=== PATIENT | male | born 1950 | race Two or more races ===

== ENCOUNTER 2024-08-23 23:20 | Inpatient (IN) | payer OTHER, MEDICARE, SELFPAY ==
--- NOTE | 2024-08-23 23:28 | EKG_ITS ---
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
[2024-08-23 23:30] VITALS: BP 198/84; PULSE 64; RESP 19; TEMP 36.7; O2SAT 97
[2024-08-23 23:31] VITALS: BMI 30.9
--- NOTE | 2024-08-23 23:48 | XR_ITS ---
Examination: PA chest single view Technique: Upright PA chest single view Exam date and time: August 24, 2024 12 0 6:00 AM Indications: Onset focal neurologic deficit today CVA Findings: Normal heart size No aspiration pneumonia The osseous structures are intact Impression: Negative for aspiration pneumonia
--- NOTE | 2024-08-23 23:48 | XR_ITS ---
Examination: CT brain head without contrast. 2-D sagittal coronal reconstructions Date and time of exam:August 24, 2024 0013 hrs. Comparison July 02, 2006 Indications: Stroke alert, onset focal neurologic deficit, onset onset left facial droop and altered mental status today CTDI: vol (mGy):53 DLP: (mGycm):1009 Technique: Multiple CT axial sections of the brain have been obtained, 5 mm slice thickness. Contrast has not been administered. 2-D sagittal, coronal reconstructions have been obtained Low dose protocols were performed. One or more of the following dose reduction techniques were used; automated exposure control, adjustment of the mA and/or KV according to patient size, use of iterative reconstruction technique. Findings: Acute nonhemorrhagic infarct left basal ganglia with mild mass effect upon the left frontal horn and left lateral ventricle Ventricles are not enlarged No intra-axial or extra-axial hematoma Fourth ventricle midline Cranial vault intact Impression: Acute nonhemorrhagic infarct left basal ganglia Recommend brain MRI MRA without contrast follow-up
--- NOTE | 2024-08-23 23:49 | EDRME_ITS ---
Rapid Medical Screening Exam [facility] Arrival date/time: 08/23/24 23:20 73M with history of alcohol use presents to ED with 2 days of possible slurred speech and R facial droop. Patient denies any symptoms, but son is saying patient is stubborn and had to be convinced to come to the ED. Chief Complaint: General Adult/Misc Complain Vital signs: Vital Signs Temperature 98.1 F 08/23/24 23:30 Pulse Rate 64 08/23/24 23:30 Respiratory Rate 19 08/23/24 23:30 Blood Pressure 198/84 H 08/23/24 23:30 Pulse Oximetry (%) 97 08/23/24 23:30 Oxygen Delivery Method Room Air 08/23/24 23:30
[2024-08-24] VITALS (25 sets, daily range): BP systolic 131–192; BP diastolic 70–96; PULSE 50–63; RESP 5–24; TEMP 36.1–37; O2SAT 97–100
[2024-08-24 01:29] LABS: Basophils % (Auto) 0 % (0-2.5); Eosinophils # (Auto) 0.3 Thou/mm3 (0.0-0.5); Eosinophils % (Auto) 4 % (0-10); Hematocrit 42.9 % (41.0-53.0); Hemoglobin 14.6 g/dL (13.5-16.0); Immature Granulocytes % (Auto) 0 % (0-0); Immature Granulocytes Auto 0.01 Thou/mm3 (0.00-0.00); Lymphocytes % (Auto) 27 % (10-50); Mean Corpuscular Hemoglobin 29.4 pg (25.0-35.0); Mean Corpuscular Volume 86 fL (80-100); Monocytes # (Auto) 0.9 Thou/mm3 (0.0-0.8); Monocytes % (Auto) 12 % (0-12); Neutrophils # (Auto) 4.1 Thou/mm3 (1.8-7.7); Neutrophils % (Auto) 56 % (37-80); Nucleated Red Blood Cell % 0 /100 WBC (0); Platelet Count 191 Thou/mm3 (140-440); RDW Standard Deviation 42.5 fL (35.1-43.9); Red Blood Count 4.97 Miln/mm3 (4.50-5.90); White Blood Count 7.3 Thou/mm3 (3.8-10.6)
[2024-08-24 01:37] LABS: INR 1.1 (0.9-1.3); Partial Thromboplastin Time 27.8 Seconds (22.0-36.0); Prothrombin Time 11.6 Seconds (9.0-12.2)
[2024-08-24 01:49] LABS: B-Type Natriuretic Peptide < 20 pg/mL (0-100)
--- NOTE | 2024-08-24 01:49 | PRELIM_ITS ---
CT scan of the head without intravenous contrast (axial sections with sagittal and coronal reformats) August 24, 2024 at 0013 hours Clinical history: Possible cerebrovascular accident, slurred speech and right facial droop Comparison: No prior study is available for comparison. Findings:There is an ill-defined hypodensity in the left basal ganglia, suspicious for acute/subacute infarct (axial image 21/42). There is no evidence of acute intracranial hemorrhage, mass effect or midline shift. There a re periventricular white matter hypodensities, compatible with chronic small vessel ischemia. There i s [id number]-[id number]-[id number] volume loss. Basal ganglia calcifications are present bilaterally. There is athero matous calcification of the intracranial arteries. The calvarium is unremarkable. There is mild mucos al thickening in bilateral ethmoid and left maxillary sinuses. The mastoid air cells and the other vi sualized paranasal sinuses are clear.Impression:1. Ill-defined hypodensity in the left basal ganglia, suspicious for acute/subacute infarct. 2. No evidence of acute intracranial hemorrhage, mass effect or midline shift.3. Other findings as described above. Suggest clinical correlation and further asses s with MRI if clinically indicated. Discussion Details: Results Discussed With : Dr. Cook at 01:4 4 AM 08/24/2024 Report Electronically Signed By: Florencio Rai 08/24/2024 1:48:53 AM [EST]
--- NOTE | 2024-08-24 01:52 | XR_ITS ---
Examination: MRI brain without intravenous contrast. Date and time of exam: August 24, 2024 at 0730 hrs. Indications: Stroke alert this morning, onset focal neurologic deficit, left facial droop altered mental status, acute nonhemorrhagic infarct left basal ganglia on CT brain scan August 24, 2024 0013 hrs. Technique: Multiple axial and sagittal images of the brain obtained. Siemens high-resolution 1.5 Karen short bore scanners utilized. Sagittal sections, T1-weighted, TR 500, TE 14, are performed. Axial sections proton-density and T2-weighted have been obtained. Inversion recovery axial images, TR 9, 260, TE 111, TI 2500. Diffusion weighted images, axial sections, TR 4800, TE 128, B value 1000 Axial sections, ADC map, TR 4800, TE 128 Findings: Enlargement of the sella turcica is not present. The optic chiasm and infundibular are not remarkable. Prepontine and interpeduncular cisterns are not enlarged. There is no localized enlargement of the medulla or corey. Fourth ventricle and cerebellar tonsils appear normal in position. No subacute area of hemorrhage density is seen. Mass in the cerebellopontine angle region is not evident. Globes symmetrical. Orbital musculature including medial lateral rectus muscles do not exhibit abnormality. Diffusion-weighted images demonstrate 39 mm focus restricted diffusion left basal ganglia with mild mass effect upon the left frontal horn. Increased white matter signal evident in the left basal ganglia Mass effect upon the ventricular system is not identified. Impression: 39 mm acute left basal ganglia infarct, nonhemorrhagic
--- NOTE | 2024-08-24 01:52 | ECHO_ITS ---
Transthoracic Echo Report Ht (in): 65 Wt (lb): 186 Exam Location: ER Status: Emergency Clerk Of Superior Court: Suma Lynn Indications: Procedure Performed: BP: 154 / 84 HR: 55 Rhythm: Bradycardia Technical Quality: Technically difficult study Contrast: Agitated Saline Total Dose (mL): MEASUREMENTS (Male / Female) Normal Values 2D ECHO LVOT Diameter 1.9 cm LA Volume Index 31.4 cm?/m? 16 - 28 cm?/m? Ascending Aorta Diameter 3.0 cm M-MODE Aortic Root Diameter MM 3.0 cm LA Systolic Diameter MM 3.6 cm LA Ao Ratio MM 1.2 AV Cusp Separation MM 2.3 cm DOPPLER AV Peak Velocity 181.0 cm/s AV Peak Gradient 13.1 mmHg AV Mean Gradient 5.0 mmHg AV Velocity Time Integral 32.1 cm LVOT Peak Velocity 117.0 cm/s LVOT Peak Gradient 5.5 mmHg LVOT Velocity Time Integral 27.0 cm LVOT Cardiac Index 2110.3 cm?/min?m? AV Area Cont Eq vti 2.4 cm? AV Area Cont Eq pk 1.8 cm? MV Peak Velocity 93.3 cm/s MV Peak Gradient 3.5 mmHg MV Mean Velocity 49.5 cm/s MV Mean Gradient 1.0 mmHg MV Area PHT 3.3 cm? Mitral E Point Velocity 72.3 cm/s Mitral A Point Velocity 91.2 cm/s Mitral E to A Ratio 0.8 LV E' Lateral Velocity 9.8 cm/s Mitral E to LV E' Lateral Ratio 7.4 LV E' Septal Velocity 8.2 cm/s Mitral E to LV E' Septal Ratio 8.9 FINDINGS Left Ventricle Normal left ventricular size, wall thickness, systolic function with no obvious regional wall motion abnormalities. The ejection fraction is visually estimated at 55-60%. Right Ventricle The right ventricle is normal in size and systolic function. Left Atrium The left atrium is normal by two-dimensional, color flow and Doppler imaging with no structural abnormalities, no thrombus formation present. Right Atrium The right atrium is normal by two-dimensional imaging, color flow and Doppler imaging with no struct ural abnormalities, no thrombus formation present. Atrial Septum The interatrial septum appears normal with no evidence of a shunt. Aorta The aorta is normal by two-dimensional, color flow and Doppler interrogation. Mitral Valve The mitral valve is normal by two-dimensional, color flow and Doppler interrogation. There is trace mitral valve regurgitation. Aortic Valve The aortic valve is trileaflet and normal by two-dimensional, color flow and Doppler interrogation. There is no significant aortic valve regurgitation. Tricuspid Valve The tricuspid valve is normal by two-dimensional, color flow and Doppler interrogation. There is tra ce tricuspid valve regurgitation. Pulmonic Valve The pulmonic valve is normal by two-dimensional, color flow and Doppler interrogation. There is no significant pulmonic valve regurgitation. Vessels The pulmonary artery appears normal. The inferior vena cava pulmonary and hepatic veins appear jesus l. Pericardium The pericardium is normal by two-dimensional imaging. There is no significant pericardial effusion. CONCLUSIONS Indication: CVA Negative bubble study. TTE is subopitmal to rule out PFO or ASD. Consider TARSHA if high clinical suspi cion. Normal LV size and function. Stage I diastolic dysfunction. Estimated EF 55-60% Normal RV size and function. Trace MR, TR. Nelson Nolasco (Electronically Signed) Final Date: 25 August 2024 08:21
[2024-08-24] MEDS: Aspirin 325 MG TABLET PO (02:05)
--- NOTE | 2024-08-24 02:06 | PD.HHHP ---
Documentation for date of: 08/24/24 HPI - Hospitalist History of Present Illness History of Present Illness: Right facial droop History of present illness: This is a 73-year-old male with a significant history of chronic daily alcohol consumption who presented to the Emergency Department for evaluation of possible stroke symptoms. Per his , the symptoms began abruptly yesterday morning around 10:00 AM, when she first noticed a right-sided facial droop and slurred speech. Initially, the patient denied any problems and was reluctant to seek medical attention. However, his family observed continued subtle changes in his behavior and appearance, prompting increasing concern. They ultimately contacted emergency services after the symptoms persisted. Upon presentation, the patient denied any symptoms and appeared nonchalant, though his confirmed the presence of a persistent right facial droop and mild speech difficulty. He denied dizziness, vision changes, or extremity weakness. His last reported alcohol consumption was just prior to the onset of symptoms. There were no associated headache, loss of consciousness, or seizures. The patient has no known history of prior strokes, medical conditions, or medication use. He has no history of tobacco use or prior surgeries. Emergency Department Course: On arrival, vital signs were as follows: BP 151/71, HR 62, RR 16, TEMP 98.1. The patient was alert, oriented, and in no acute distress. Examination revealed a right facial droop, but motor strength in all extremities was intact, and no dysarthria was noted. Laboratory results included WBC 7.3, hemoglobin 14.6, platelets 191, sodium 136, potassium 3.6, and glucose 158. AST was 45. Imaging studies showed an ill-defined hypodensity in the left basal ganglia, suspicious for an acute or subacute infarct, with no evidence of intracranial hemorrhage, mass effect, or midline shift. Electrocardiogram demonstrated sinus bradycardia. The patient was admitted for CVA workup. Review of Systems Review of Systems Narrative Review of Systems: A 14 point review of systems was assessed and negative except for that per HPI Past Medical History Past Medical History CARDIAC: Negative Congestive Heart Failure RESPIRATORY: Negative Chronic Obstructive Pulmonary Disease (COPD) GENITOURINARY: Negative Renal Disease ENDOCRINE: Negative Diabetes Mellitus Type 1 or Diabetes Mellitus Type 2 Social History SMOKING STATUS: Former smoker Meds Home Medications and Allergies Home Medications ?Medication ?Instructions ?Recorded ?Confirmed ?Type No Known Home Medications 08/24/24 08/24/24 History Allergies Allergy/AdvReac Type Severity Reaction Status Date / Time No Known Allergies Allergy Verified 08/23/24 23:25 Exam Vital Signs Temp Pulse Resp BP Pulse Ox O2 Del Method 98.1 F 62 16 151/71 H 99 Room Air 08/23/24 23:30 08/24/24 01:48 08/24/24 01:48 08/24/24 01:48 08/24/24 01:48 08/24/24 01:48 Narrative Constitutional: Male in no apparent distress. Eyes: Extraocular movements intact. No ptosis. Neck: Supple, trachea midline. No thyromegaly. Lungs: Clear breath sounds bilaterally. No wheezes or rhonchi. Cardiovascular: S1, S2. Regular rate and rhythm. Abdomen: Soft, non-tender. No hepatosplenomegaly. Extremities: No cyanosis, clubbing, or edema. Neurological: Alert and oriented ? 3. Right facial droop noted. Strength intact in all four extremities. No dysarthria or coordination deficits. Psychiatric: Non-focal and cooperative. Skin: Warm and dry without acute lesions. Results - Hospitalist Labs Diagrams: 08/24/24 01:10 Labs: Short CBC 08/24/24 Range/Units 01:10 WBC 7.3 (3.8-10.6) Thou/mm3 Hgb 14.6 (13.5-16.0) g/dL Hct 42.9 (41.0-53.0) % Plt Count 191 (140-440) Thou/mm3 Assessment & Plan -Hospitalist Patient Synopsis #CVA, left basal ganglia - No TPA (out of window) - Admit to telemetry - Aspirin 81 mg daily - Lipitor 40 mg daily - Neurology consult - Neuro check q 4 hourly - MRI head - Carotid duplex - 2D ECHO - Lipid panel, HbA1C - Keep systolic BP <220 and diastolic BP <120 mmHg - Maintain LDL less than 75 - DVT prophylaxis - Fall, aspiration and seizure precautions - PT Evaluation - Swallow evaluation Quality Measures Quality Measures VTE prophylaxis Advance care planning discussed with:: patient
[2024-08-24 02:08] LABS: Alanine Aminotransferase 41 U/L (10-49); Albumin, Serum 4.8 gm/dL (3.4-4.8); Albumin/Globulin Ratio 1.7 (1.2-2.2); Alcohol, Blood Medical < 3.0 mg/dL (0-10.0); Alkaline Phosphatase 44 U/L (46-116); Anion Gap 6 (7-16); Aspartate Amino Transferase 45 U/L (0-34); BUN/Creatinine Ratio 13 Ratio (12-20); Bilirubin,Total 0.4 mg/dL (0.3-1.2); Blood Urea Nitrogen 14 mg/dL (9-23); Calcium 9.3 mg/dL (8.3-10.6); Calcium (Corrected) 9.3 mg/dL (8.5-10.1); Carbon Dioxide 24.7 mMol/L (20.0-31.0); Chloride 105 mMol/L (98-107); Creatinine (Component) 1.1 mg/dL (0.6-1.3); Globulin 2.9 gm/dL (2.3-3.5); Glucose 158 mg/dL (74-106); Magnesium 2.3 mg/dL (1.6-2.6); Osmolality,Calculated 275 (275-295); Potassium 3.6 mMol/L (3.4-5.1); Sodium 136 mMol/L (136-145); Total Protein 7.7 gm/dL (5.7-8.2); Troponin I < 0.002 ng/mL (0.0-0.045); eGFR > 60 See Note
--- NOTE | 2024-08-24 02:28 | XR_ITS ---
Examination: CTA carotids with intravenous contrast CTA brain, head with intravenous contrast. 2-D sagittal, coronal reconstructions. 3-D reconstructions. Exam date and time: August 24, 2024 0337 hrs. Indications: Stroke alert this morning, onset focal neurologic deficit, onset left facial droop and altered mental status CTDI: vol (mGy) 11.1 DLP: (mGycm) 432 Technique: Multiple CTA axial brain, head carotid images post intravenous contrast injection 75 cc, [id number]. 2-D sagittal, coronal reconstructions. 3-D reconstructions, 3-D post processing including vascular maximum intensity projection images. Low dose protocols were performed. One or more of the following dose reduction techniques were used; automated exposure control, adjustment of the mA and/or KV according to patient size, use of iterative reconstruction technique. Findings: No significant common carotid carotid bifurcation or internal carotid artery stenoses Codominant vertebral arteries with no critical stenoses No cerebral large vessel arterial occlusions thrombus dissection or cerebral aneurysm Impression: No significant neck arterial stenoses No cerebral large vessel arterial occlusions or thrombus
--- NOTE | 2024-08-24 02:31 | PD.EDNEURO ---
Neuro Symptoms Deficit-RME/HPI General Chief Complaint: Neuro Symptoms/Deficit Stated Complaint: Hes having strokes Source: patient and family Arrival date/time: 08/23/24 23:20 Mode of arrival: ambulatory Limitations: no limitations RME / HPI RME / HPI Narrative: 08/23/24 23:20 73M with history of alcohol use presents to ED with 2 days of possible slurred speech and R facial droop. Patient denies any symptoms, but son is saying patient is stubborn and had to be convinced to come to the ED. DR WEBB MAIN ED EVALUATION: 73-year-old male with no significant past medical history who presents to the emergency department for concerns of neurological deficits ongoing for the past 2 days. Patient reports possible slurred speech and right facial droop. No other symptoms or medical complaints are mentioned. Related Data Previous Rx's ?Medication ?Instructions ?Recorded amlodipine 5 mg tablet 5 mg PO QDAY 30 days #30 tabs 08/25/24 aspirin 81 mg tablet,delayed 81 mg PO QDAY 30 days #30 tabs 08/25/24 release (Enteric Coated Aspirin) atorvastatin 40 mg tablet 40 mg PO HS 30 days #30 tabs 08/25/24 Allergies Allergy/AdvReac Type Severity Reaction Status Date / Time No Known Allergies Allergy Verified 08/23/24 23:25 Review of Systems Review of Systems Systems Reviewed: All systems reviewed, normal except as documented Past Medical History Past Medical History CARDIAC: Negative Congestive Heart Failure RESPIRATORY: Negative Respiratory Disorders or Chronic Obstructive Pulmonary Disease (COPD) GENITOURINARY: Negative Renal Disease ENDOCRINE: Negative Diabetes Mellitus Type 1 or Diabetes Mellitus Type 2 Social History SMOKING STATUS: Former smoker ED Exam Narrative Physical exam: GENERAL APPEARANCE: alert and oriented x 4, well-developed, well-nourished, no acute distress VITALS: All vitals were reviewed and the pulse ox is 99% on room air, which is normal according to my interpretation. HEENT: Normocephalic, atraumatic; pupils equal, round, reactive to light; EOMI; mucous membranes pink, moist; oropharynx clear NECK: Supple LUNGS: CTABL; no wheezes, no rales, no rhonchi HEART: Regular rate, regular rhythm; normal S1, S2; no murmurs ABDOMEN: non distended; normal BS; soft, no tenderness, no guarding, no rebound; no masses, no organomegaly, no hernia BACK: no CVA tenderness EXTREMITIES: atraumatic; no edema NEUROLOGIC: awake; alert and oriented x4; cranial nerves II-XII grossly intact; no focal sensory or motor deficits PSYCHIATRIC: appropriate mood and affect SKIN: warm, dry, normal color; no rashes General Limitations: Present no limitations Course Course Course Narrative: Evaluated by teleneurology. Neurologist recommends aspirin 81 mg, Plavix 75 mg, vascular study, and MRI Quality Measures none Orders Category Date Time Status Blood glucose [Bedside Blood Glucose] NOW Care 08/23/24 23:29 Completed EKG (ED ONLY) *Do not use* NOW Care 08/23/24 23:28 Completed MRI Screening NOW Care 08/24/24 01:52 Completed Neuro Check Q4H Care 08/24/24 01:52 Completed Swallow Evaluation NEEDED Care 08/24/24 01:53 Completed CA echo doppler complete Routine Exams 08/24/24 01:[address] head/brain wo con Stat Exams 08/23/24 23:48 Completed EKG (ED Only) Stat Exams 08/23/24 23:28 Draft MR head/brain wo con Routine Exams 08/24/24 01:52 Completed XR chest 1V portable Stat Exams 08/23/24 23:48 Completed A1C [Glycohemoglobin w (eAG)] AM DRAW Lab 08/24/24 05:56 Completed Alcohol, Blood Medical Stat Lab 08/23/24 23:48 Completed B-Type Natriuretic Peptide Stat Lab 08/23/24 23:48 Completed CBC Stat Lab 08/23/24 23:48 Completed Comprehensive Metabolic Panel Stat Lab 08/23/24 23:48 Completed Drug Screen,Urine Stat Lab 08/24/24 08:15 Completed Magnesium Stat Lab 08/23/24 23:48 Completed Partial Thromboplastin Time Stat Lab 08/23/24 23:48 Completed Prothrombin Time with INR Stat Lab 08/23/24 23:48 Completed Troponin I Stat Lab 08/23/24 23:48 Completed Urinalysis Stat Lab 08/24/24 08:15 Completed Aspirin Med 08/24/24 01:53 Discontinued 325 mg PO X1 ONE Aspirin [Ecotrin] Med 08/24/24 09:00 Discontinued 81 mg PO QDAY Atorvastatin Calcium [Lipitor] Med 08/24/24 21:00 Discontinued 40 mg PO HS Vital Signs Vital signs: Vital Signs Temperature 98.1 F 08/23/24 23:30 Pulse Rate 64 08/23/24 23:30 Respiratory Rate 19 08/23/24 23:30 Blood Pressure 198/84 H 08/23/24 23:30 Pulse Oximetry (%) 97 08/23/24 23:30 Oxygen Delivery Method Room Air 08/23/24 23:30 Neuro Symptoms / Deficit MDM Narrative MDM Narrative:: Scribe Attestation: I, Catracho Corrales, am scribing for and in the presence of Dr. Webb. Provider Notation: Although this document has been carefully reviewed, there may still be some phonetic and other typographical errors. These errors are purely grammatical due to imperfections in the software program and should not be construed in any way to compromise the substance of the patient's medical care during this visit. Patient data External records reviewed:: [facility] previous records Clinical information provided by:: patient and family Social determinants that could affect healthcare access:: none Patient has the following chronic illnesses:: None How is presenting disease/condition affected by chronic disease/condition?: no chronic disease Evaluation data The following diagnostics were reviewed and interpreted by me:: lab results, radiology exam(s) and EKG tracing(s) Lab and/or radiology exams considered but not ordered:: None Interpretation Summary: I personally reviewed the radiology data and agree with the radiologist's interpretation. CT scan of the head without intravenous contrast (axial sections with sagittal and coronal reformats) August 24, 2024 at 0013 hours Clinical history: Possible cerebrovascular accident, slurred speech and right facial droop Comparison: No prior study is available for comparison. Findings: There is an ill-defined hypodensity in the left basal ganglia, suspicious for acute/subacute infarct (axial image 21/42). There is no evidence of acute intracranial hemorrhage, mass effect or midline shift. There are periventricular white matter hypodensities, compatible with chronic small vessel ischemia. There is appo-zb-[id number] volume loss. Basal ganglia calcifications are present bilaterally. There is atheromatous calcification of the intracranial arteries. The calvarium is unremarkable. There is mild mucosal thickening in bilateral ethmoid and left maxillary sinuses. The mastoid air cells and the other visualized paranasal sinuses are clear. Impression: 1. Ill-defined hypodensity in the left basal ganglia, suspicious for acute/subacute infarct. 2. No evidence of acute intracranial hemorrhage, mass effect or midline shift. 3. Other findings as described above. Suggest clinical correlation and further assess with MRI if clinically indicated. Discussion Details: Results Discussed With : Dr. Webb at 01:44 AM 08/24/2024 Report Electronically Signed By: Florencio Rai 08/24/2024 1:48:53 AM [EST] Medications / Prescriptions Medications or Prescriptions considered but not ordered:: None Medication administrations:: Medication Administration History Discontinued Medications Acetaminophen (Acetaminophen 325 Mg Tablet) 650 mg PO Q6H PRN PRN Reason: Fever >101.5 Stop: 09/23/24 02:04 Aspirin (Aspirin Ec 81 Mg Tabec) 81 mg PO QDAY [facility] Stop: 09/23/24 08:59 Last Admin: 08/25/24 08:31 Dose: 81 mg Documented By: Admin: 08/24/24 08:30 Dose: 81 mg Documented By: ARCHANA Aspirin (Aspirin 325 Mg Tablet) 325 mg PO X1 ONE Stop: 08/24/24 01:54 Last Admin: 08/24/24 02:05 Dose: 325 mg Documented By: CB Atorvastatin Calcium (Atorvastatin Calcium 20 Mg Tablet) 40 mg PO HS [facility] Stop: 09/23/24 20:59 Last Admin: 08/24/24 20:58 Dose: 40 mg Documented By: WB Clopidogrel Bisulfate (Clopidogrel Bisulfate 75 Mg Tablet) 75 mg PO QDAY REESE Stop: 09/23/24 08:59 Last Admin: 08/25/24 08:31 Dose: 75 mg Documented By: Admin: 08/24/24 08:30 Dose: 75 mg Documented By: FC Dextrose (Dextrose 50%-Water Inj 50 Ml Syringe) 25 ml IV Q15MIN PRN PRN Reason: BG 50-70 responsive npo pt Stop: 09/23/24 02:45 Dextrose (Dextrose 50%-Water Inj 50 Ml Syringe) 50 ml IV Q15MIN PRN PRN Reason: BG <50 OR BG <70 & pt unresponsive Stop: 09/23/24 02:45 Folic Acid (Folic Acid 1 Mg Tablet) 1 mg PO BID REESE Stop: 08/29/24 08:59 Last Admin: 08/25/24 08:31 Dose: 1 mg Documented By: Admin: 08/24/24 20:58 Dose: 1 mg Documented By: Admin: 08/24/24 08:30 Dose: 1 mg Documented By: ARCHANA Glucagon (Glucagon Inj 1 Mg Vial) 1 mg IM Q15MIN PRN PRN Reason: BG <70, and no IV access Heparin Sodium (Porcine) (Heparin Sod Inj 5000 Unit/Ml Vial) 5,000 unit SC Q8HR REESE Stop: 09/07/24 05:59 Last Admin: 08/25/24 13:56 Dose: 5,000 unit Documented By: MIRLANDE Co-signed By: YESIKA Admin: 08/25/24 05:43 Dose: 5,000 unit Documented By: WB Co-signed By: MADAI Admin: 08/24/24 21:01 Dose: 5,000 unit Documented By: PADMA Co-signed By: PAULA Admin: 08/24/24 14:48 Dose: 5,000 unit Documented By: MIRLANDE Co-signed By: MAKAYLA Admin: 08/24/24 05:50 Dose: 5,000 unit Documented By: PRISCILA Co-signed By: ERWIN Hydralazine HCl (Hydralazine Inj 20 Mg/Ml Vial) 10 mg IV Q6H PRN PRN Reason: SBP >160 Stop: 09/23/24 21:29 Last Admin: 08/24/24 21:33 Dose: 10 mg Documented By: PADMA Sodium Chloride (Ns) 1,000 mls @ 75 mls/hr IV .[id number] ONE Stop: 08/24/24 15:34 Last Admin: 08/24/24 04:03 Dose: 75 mls/hr Documented By: PRISCILA Insulin Human Regular (Insulin Hum Regular 1 Unit/0.01 Ml (Per Unit)) 0 unit SC ACHS [facility]; Protocol Stop: 09/23/24 07:29 Last Admin: 08/25/24 07:47 Dose: Not Given Documented By: MIRLANDE Non-Admin Reason: Per Protocol Admin: 08/24/24 21:02 Dose: Not Given Documented By: PADMA Non-Admin Reason: Per Protocol Admin: 08/24/24 18:01 Dose: Not Given Documented By: MIRLANDE Non-Admin Reason: Per Protocol Admin: 08/24/24 12:25 Dose: Not Given Documented By: ARCHANA Non-Admin Reason: Per Protocol Admin: 08/24/24 08:26 Dose: Not Given Documented By: ARCHANA Non-Admin Reason: Patient Refused Lorazepam (Lorazepam 0.5 Mg Tablet) 0.5 mg PO Q4HR PRN PRN Reason: CIWA Score 2-6 Stop: 08/29/24 02:21 Lorazepam (Lorazepam 0.5 Mg Tablet) 1 mg PO Q4HR PRN PRN Reason: CIWA SCORE 7-11 Stop: 08/29/24 02:21 Lorazepam (Lorazepam 0.5 Mg Tablet) 2 mg PO Q4HR PRN PRN Reason: CIWA SCORE 12-15 Stop: 08/29/24 02:21 Lorazepam (Lorazepam 2 Mg/Ml Vial) 1 mg IV X1 PRN PRN Reason: Breakthrough Agitation Thiamine HCl (Thiamine 100 Mg Tablet) 100 mg PO BID REESE Stop: 08/29/24 08:59 Last Admin: 08/25/24 08:31 Dose: 100 mg Documented By: Admin: 08/24/24 20:58 Dose: 100 mg Documented By: Admin: 08/24/24 08:30 Dose: 100 mg Documented By: ARCHANA As above Consultations Consultation(s) initiated? (list below): Yes Consultation #1 (Physician, Specialty, Details): Hospitalist team made aware of the patient?s HPI, PMHx, lab and/or radiology results. Treatment plan was discussed. Will admit for further evaluation and management. Accepts patient for admission. Diagnosis Neuro Differential Diagnosis: convulsions, subarachnoid hemorrhage, peripheral neuropathy, cerebrovascular accident and transient cerebral ischemia Most likely diagnosis given after review of the tests above:: CVA Admission Indicated Admission indicated?: indicated Admission Request Was there a request for admission?: Yes Admission Attestation Admission request attestation: Discussed case with [] from Hospitalist service regarding admission. Discussed patients ED course, exam findings, labs, and radiology results. The Hospitalist [agrees,declines] to accept the patient for admission. Disposition Plan Disposition Plan: Admit Critical Care Time Critical Care Time Critical Care Time: Yes Total Critical Care Time (min.): 35 Attestation: The high probability of sudden, clinically significant deterioration in the patient?s condition required the highest level of my preparedness to intervene urgently. The services I provided to this patient were to treat and/or prevent clinically significant deterioration. Services included the following: chart data review, reviewing nursing notes and/or old charts, documentation time, business solutions consultant collaboration regarding findings and treatment options, medication orders and management, direct patient care, vital sign assessments and ordering, interpreting and reviewing diagnostic studies and lab tests. Aggregate critical care time includes only time during which I was engaged in work directly related to the patient?s care, as described above, whether at bedside or elsewhere in the Emergency Department. It did not include time spent performing other reported procedures or the services of residents, students, nurses or physician assistants. Discharge Plan Plan Patient Disposition: Admit Acute Care w/in Hospital Patient condition on transfer: Stable Problem List Clinical Impression: Acute CVA (cerebrovascular accident)
--- NOTE | 2024-08-24 02:54 | PC.NURSE ---
STROKE ALERT DELAYED DUE TO UNCERTAINTY OF LAST KNOWN WELL TIME
--- NOTE | 2024-08-24 02:57 | PC.NURSE ---
stroke consult Case # [id number]
--- NOTE | 2024-08-24 03:22 | ESCONSULT_ITS ---
Tele Neuro Consultation Consultation Date 08/24/24 Most Recent Vital Signs Last Vital Signs Temp 98.1 F 08/23/24 23:30 Pulse 62 08/24/24 01:48 Resp 16 08/24/24 01:48 BP 151/71 H 08/24/24 01:48 Pulse Ox 99 08/24/24 01:48 O2 Del Method Room Air 08/24/24 01:48 Laboratory-Coagulation Panel PT 11.6 Seconds (9.0-12.2) 08/24/24 01:10 INR 1.1 (0.9-1.3) 08/24/24 01:10 APTT 27.8 Seconds (22.0-36.0) 08/24/24 01:10 Consultation Narrative [facility] Patient Name:???Yared Camacho Date of :???1950 Identification Number:??? Date of Service:???08/24/2024 02:57:38 Diagnosis:?I63.50 - Cerebrovascular accident (CVA) due to stenosis of cerebral artery (HCC) Impression: ?Left subcortical ischemic stroke ?This patient has experienced a subacute ischemic stroke localized to the left subcortical region, manifesting clinically as right-sided lower facial weakness and mild dysarthria. Given the uncertainty regarding the precise timing of symptom onset and the lack of significant disabling deficits, thrombolysis was not indicated. He has been appropriately started on dual antiplatelet therapy (aspirin 81 mg and Plavix 75 mg) for three weeks to reduce recurrent stroke risk. ? ?I recommend continuing dual antiplatelet therapy for three weeks, followed by monotherapy with aspirin 81 mg daily. I plan to normalize blood pressure cautiously over time, as this stroke is subacute. ? ?Await CTA head and neck and MRI brain Our recommendations are outlined below. Recommendations: ? Stroke/Telemetry Floor ? Neuro Checks ? Bedside Swallow Eval ? DVT Prophylaxis ? IV Fluids, Normal Saline ? Head of Bed 30 Degrees ? Euglycemia and Avoid Hyperthermia (PRN Acetaminophen) Metrics: Last Known Well: 08/23/2024 03:15:34 Dispatch Time: 08/24/2024 02:57:38 Arrival Time: 08/23/2024 23:23:00 Initial Response Time: 08/24/2024 03:02:26Symptoms: right facial droop. Initial patient interaction: 08/24/2024 03:10:25 NIHSS Assessment Completed: 08/24/2024 03:18:59Patient is not a candidate for Thrombolytic. Thrombolytic Medical Decision: 08/24/2024 03:19:01Patient was not deemed candidate for Thrombolytic because of following reasons: LKW outside 4.5 hr window. . I personally Reviewed the CT Head and it Showed left subcortical ischemic stroke Primary Provider Notified of Diagnostic Impression and Management Plan on: 08/24/2024 03:19:34 History of Present Illness:Patient is a 73 year old Male. Patient was brought by private transportation with symptoms of right facial droop. 73-year-old right-handed gentleman who presented to the emergency department following concerning neurological symptoms that began around 9 PM according to the patient and family members. The exact onset of symptoms is uncertain; the patient?s reported noticing slurred speech and a right-sided facial droop around 10 PM the night before presentation (Tuesday), while other family members suggested these symptoms had been ongoing for an entire day prior. Despite initial improvement in symptoms, his family eventually convinced him to seek medical evaluation. Past Medical History: ?There is no history of Hypertension ?There is no history of Hyperlipidemia ?There is no history of Coronary Artery Disease ?There is no history of Stroke ?There is no history of Seizures ?There is no history of Dementia/MCI Medications: No Anticoagulant use? No Antiplatelet use Reviewed EMR for current medications Allergies:? NKDA Social History: Patient Is: Single Smoking: No Alcohol Use: Yes Drug Use: No Family History: There is no family history of premature cerebrovascular disease pertinent to this consultation ROS : 14 Points Review of Systems was performed and was negative except mentioned in HPI. Past Surgical History: There Is No Surgical History Contributory To Today?s Visit Examination: BP(151/71),?Pulse(62), 1A: Level of Consciousness - Alert; keenly responsive?+ 0 1B: Ask Month and Age - Both Questions Right?+ 0 1C: Blink Eyes & Squeeze Hands - Performs Both Tasks?+ 0 2: Test Horizontal Extraocular Movements - Normal?+ 0 3: Test Visual Bell - No Visual Loss?+ 0 4: Test Facial Palsy (Use Grimace if Obtunded) - Partial paralysis (lower face)? + 2 5A: Test Left Arm Motor Drift - No Drift for 10 Seconds?+ 0 5B: Test Right Arm Motor Drift - No Drift for 10 Seconds?+ 0 6A: Test Left Leg Motor Drift - No Drift for 5 Seconds?+ 0 6B: Test Right Leg Motor Drift - No Drift for 5 Seconds?+ 0 7: Test Limb Ataxia (FNF/Heel-Leija) - No Ataxia?+ 0 8: Test Sensation - Normal; No sensory loss?+ 0 9: Test Language/Aphasia - Normal; No aphasia?+ 0 10: Test Dysarthria - Mild-Moderate Dysarthria: Slurring but can be understood?+ 1 11: Test Extinction/Inattention - No abnormality?+ 0 NIHSS Score:?3 Pre-Morbid Modified [place] Scale:0 Points = No symptoms at all Spoke with :?Dr. Parada This consult was conducted in real time using interactive audio and video technology. Patient was informed of the technology being used for this visit and agreed to proceed. Patient located in hospital and provider located at home/office setting. Patient is being evaluated for possible acute neurologic impairment and high probability of imminent or life-threatening deterioration. I spent total of 45 minutes providing care to this patient, including time for face to face visit via telemedicine, review of medical records, imaging studies and discussion of findings with providers, the patient and/or family. Dr Devi Cook [facility] For Inpatient follow-up with [facility] physician please call [facility] at . As we are not an outpatient service for any post hospital discharge needs please contact the hospital for assistance. If you have any questions for the [facility] physicians or need to reconsult for clinical or diagnostic changes please contact us via [facility] at .
[2024-08-24] MEDS: SODIUM CHLORIDE 0.9% 1000 ML 1,000 ML 75 ML IV (04:03)
--- NOTE | 2024-08-24 05:29 | PRELIM_ITS ---
CT angiogram of the head and neck with intravenous contrast (axial sections with sagittal and coronal reformats) August 24, 2024 at 0337 hours Clinical History: CVA.Comparison: Compared with the prior study dated August 24, 2024 12:13 AM Findings:Head: The internal carotid, middle and anterior cere bral arteries are patent bilaterally. The intracranial vertebral arteries are patent. The vertebrobas ilar junction, basilar and posterior cerebral arteries are patent. diminutive caliber of the basilar artery. origin of the BELT BRANDER with a hypoplastic P1 segment bilaterally. No evidence of large vesse l occlusion, critical stenosis or aneurysm.Neck: The aortic arch to the extent visualized as well as the origins of the right brachiocephalic, left common carotid, and left subclavian arteries are paten t. The common carotid arteries, carotid bulbs, and internal and external carotid arteries are patent. The origins of the vertebral arteries are unremarkable. Vertebral arteries are codominant. No eviden ce of vascular occlusion, critical stenosis, dissection or aneurysm. The soft tissues of the neck are unremarkable. The osseous structures are unremarkable.Impression: Head: No evidence of large vessel occlusion, critical stenosis or aneurysm.Neck: No evidence of vascular occlusion, critical stenosis, dissection or aneurysm. Report Electronically Signed By: Trace Santiago 08/24/2024 5:29:32 AM [EST]
[2024-08-24] MEDS: HEPARIN SOD INJ 5000 UNIT/ML VIAL SC ×3 (05:50→21:01)
[2024-08-24 06:50] LABS: Basophils % (Auto) 0 % (0-2.5); Eosinophils # (Auto) 0.3 Thou/mm3 (0.0-0.5); Eosinophils % (Auto) 5 % (0-10); Hemoglobin 13.6 g/dL (13.5-16.0); Immature Granulocytes % (Auto) 0 % (0-0); Immature Granulocytes Auto 0.02 Thou/mm3 (0.00-0.00); Lymphocytes # (Auto) 1.9 Thou/mm3 (1.0-4.8); Lymphocytes % (Auto) 29 % (10-50); Mean Corpuscular Hemoglobin 29.1 pg (25.0-35.0); Mean Corpuscular Volume 86 fL (80-100); Monocytes # (Auto) 0.9 Thou/mm3 (0.0-0.8); Monocytes % (Auto) 13 % (0-12); Neutrophils # (Auto) 3.5 Thou/mm3 (1.8-7.7); Neutrophils % (Auto) 53 % (37-80); Nucleated Red Blood Cell % 0 /100 WBC (0); Platelet Count 201 Thou/mm3 (140-440); RDW Standard Deviation 41.9 fL (35.1-43.9); Red Blood Count 4.68 Miln/mm3 (4.50-5.90); White Blood Count 6.7 Thou/mm3 (3.8-10.6)
[2024-08-24 07:02] LABS: Anion Gap 7 (7-16); BUN/Creatinine Ratio 14 Ratio (12-20); Blood Urea Nitrogen 13 mg/dL (9-23); Carbon Dioxide 24.5 mMol/L (20.0-31.0); Cardiac Risk Estimate 3.5 RATIO (4.0-6.7); Chloride 106 mMol/L (98-107); Cholesterol 190 mg/dL (132-200); Creatinine (Component) 0.9 mg/dL (0.6-1.3); Estimated Creatinine Clearance 70.9 mL/min (>60); Glucose 105 mg/dL (74-106); HDL Cholesterol 54 mg/dL (40-60); LDL Cholesterol,Calculated 110 mg/dL (0-130); Osmolality,Calculated 273 (275-295); Potassium 3.4 mMol/L (3.4-5.1); Sodium 137 mMol/L (136-145); Triglycerides 131 mg/dL (30-150); eGFR > 60 See Note
--- NOTE | 2024-08-24 07:25 | PC.NURSE ---
Patient taken to MRI
[2024-08-24 07:32] LABS: Glucose Estimated Average 123 mg/dL (80-131); Hemoglobin A1C 5.9 % Hgb (4.8-6.0)
--- NOTE | 2024-08-24 08:18 | PC.CC ---
Patient is a 73 year-old male who presented to the hospital for CVA. Alannah VILLANUEVA made [id number] contact with patient. ASW introduced self, role, and reason for visit. Patient appeared alert and oriented to self, location, and situation. At bedside was patent's , Michelle Camacho who patient provided consent in the room during initial assessment. Patient was pleasant and engaged in initial assessment. Patient confirmed information on demographics and reports to living at home with his . Prior to being admitted to the hospital the patient was able to ambulate independently and complete own ADLs. The patient does not use any DME. The patient does not have a primary care provider. Patient next of kin is his , Michelle Camacho. Upon discharge the patient plans to return back home. [employer] to follow-up with any discharge needs.
[2024-08-24 08:26] LABS: Collection Type, Urine Clean Catch
[2024-08-24] MEDS: CLOPIDOGREL BISULFATE 75 MG TABLET PO (08:30)
[2024-08-24] MEDS: THIAMINE 100 MG TABLET PO ×2 (08:30→20:58)
[2024-08-24] MEDS: FOLIC ACID 1 MG TABLET PO ×2 (08:30→20:58)
[2024-08-24] MEDS: ASPIRIN EC 81 MG TABEC PO (08:30)
[2024-08-24 08:31] LABS: Bilirubin,Urine Negative (Negative); Blood,Urine Negative (Negative); Clarity,Urine Clear (Clear/Hazy); Color,Urine Lt-Yellow (Lt Yel-Yel); Glucose, Urine Negative (Negative); Ketones,Urine Negative (Negative); Leukocyte Esterase,Urine Negative (Negative); Nitrite,Urine Negative (Negative); PH,Urine 6.5 (5.0-7.0); Protein,Urine Negative (Neg - Trace); RBC,Urine 2 /hpf (0-3); Specific Gravity,Urine 1.036 (1.001-1.035); Squamous Epithelial Cell,Urine < 1 /hpf (0-5); Urobilinogen,Urine Negative mg/dL (0.0-1.0); WBC,Urine < 1 /hpf (0-5)
[2024-08-24 08:38] LABS: Amphetamine/Methamp Scrn,U Negative (Negative); Barbiturate Screen,Urine Negative (Negative); Benzodiazepines Screen,Urine Negative (Negative); Benzoylecgonine Screen, Ur Negative (Negative); Fentanyl Screen,Urine Negative (Negative); Opiate Screen,Urine Negative (Negative); THC Screen,Urine Negative (Negative)
--- NOTE | 2024-08-24 11:31 | PCS.ST ---
Swallow Evaluation completed. Continue current diet. Speech/language evaluation as needed to follow.
--- NOTE | 2024-08-24 12:39 | PC.NURSE ---
report given to RASHAWN New
--- NOTE | 2024-08-24 17:24 | PD.EVENT ---
Documentation for date of: 08/24/24 Event Note Event Note: Patient was seen and evaluated at the bedside. Please see the H&P note for the same date 08/24/2024. Patient reported no new neurocomplaints. He does have mild slurred speech. Will continue frequent neurochecks every 4 hours. Pending brain MRI and echocardiogram. Discussed the plan with the patient and his granddaughter at the bedside.
[2024-08-24] MEDS: ATORVASTATIN CALCIUM 20 MG TABLET 40 MG PO (20:58)
[2024-08-24] MEDS: hydrALAZINE INJ 20 MG/ML VIAL 10 MG IV (21:33)
--- NOTE | 2024-08-24 23:23 | PD.NEUROPROG ---
Documentation for date of: 08/24/24 Subjective Subjective Interval history: Patient was seen in [facility] today with his family at the bedside. No new symptoms reported. He continues to have facial weakness but no dysarthria or weakness in the extremities or paresthesias. Exam - Neurology Vital Signs Temp Pulse Resp BP Pulse Ox O2 Del Method 97.4 F 54 L 14 177/96 H 97 Room Air 08/24/24 20:00 08/24/24 21:33 08/24/24 20:00 08/24/24 21:33 08/24/24 20:00 08/24/24 20:00 Narrative Exam GENERAL APPEARANCE: Well hydrated, well-nourished in no acute distress. HEENT: Normocephalic, atraumatic, extraocular movements intact. Pupils: Equal reacting to light and accommodation NECK: Supple, no JVD or bruits. CARDIOVASULAR: Heart: S1, S2 heard, regular without S3-S4 or murmur no rubs or gallops. LUNGS/CHEST: Clear to auscultation bilaterally. No rails, rhonchi, or wheezing. Normal inspection. ABDOMEN: Soft, nontender, with normal bowel sounds. No pulsatile masses. No rebound, rigidity, or guarding. Normal inspection and palpation. EXTREMITIES: Normal inspection and palpation. No edema, clubbing or cyanosis. SKIN: Warm and dry without rashes. Normal inspection. MUSCULOSKELETAL: No cervical, thoracic, lumbar or midline bony tenderness. Normal inspection. NEURO: Alert, awake and oriented x3. Cranial nerves: II through XII grossly intact. Speech and language: Normal with no dysarthria or dysphasia. Motor system: Tone and bulk: Normal: Strength: 5 out of 5 in all 4 extremities; No pronator drift noted. Deep tendon reflexes: 2+ bilaterally symmetrical. Plantar reflex: Downgoing bilaterally. Sensory system: Intact to all modalities of sensation bilaterally. Coordination: Intact to rrboen-ckks-zffed and hvtq-xfha-vegn test bilaterally. No ataxia, no dysmetria, or dysdiadochokinesia noted. No intention tremors noted. Gait: Normal. Toe, heel, tandem walk all are normal. Romberg: Negative. No signs of meningeal irritation noted. PSYCHIATRIC: Normal mood and affect. Objective Labs 08/24/24 05:56 08/24/24 05:56 Labs: Laboratory Results - last 24 hr 08/24/24 08/24/24 08/24/24 01:10 05:56 08:15 WBC 7.3 6.7 RBC 4.97 4.68 Hgb 14.6 13.6 Hct 42.9 40.0 L MCV 86 86 MCH 29.4 29.1 MCHC 34.0 34.0 RDW Std Deviation 42.5 41.9 Plt Count 191 201 Neut % (Auto) 56 53 Lymph % (Auto) 27 29 [place] % (Auto) 12 13 H Eos % (Auto) 4 5 Baso % (Auto) 0 0 Neut # (Auto) 4.1 3.5 Lymph # (Auto) 2.0 1.9 [place] # (Auto) 0.9 H 0.9 H Eos # (Auto) 0.3 0.3 Baso # (Auto) 0.0 0.0 Immature Gran # (Auto) 0.01 H 0.02 H Absolute Nucleated RBC 0.00 0.00 Immature Gran % 0 0 Nucleated RBC % 0 0 PT 11.6 INR 1.1 APTT 27.8 Sodium 136 137 Potassium 3.6 3.4 Chloride 105 106 Carbon Dioxide 24.7 24.5 Anion Gap 6 L 7 BUN 14 13 Creatinine 1.1 0.9 Estim Creat Clear Calc 58.0 L 70.9 eGFR > 60 > 60 BUN/Creatinine Ratio 13 14 Glucose [address] Glu mg/dL 123 Hemoglobin A1c 5.9 Calculated Osmolality 275 273 L Calcium 9.3 9.0 Corrected Calcium 9.3 Magnesium 2.3 Total Bilirubin 0.4 AST 45 H ALT 41 Alkaline Phosphatase 44 L Troponin I < 0.002 B-Natriuretic Peptide < 20 Total Protein 7.7 Albumin 4.8 Globulin 2.9 Albumin/Globulin Ratio 1.7 Triglycerides 131 Cholesterol 190 LDL Cholesterol, Calc 110 HDL Cholesterol 54 Cholesterol/HDL Ratio 3.5 L Ur Collection Type Clean Catch Urine Color Lt-Yellow Urine Clarity Clear Urine pH 6.5 Ur Specific [place] 1.036 H Urine Protein Negative Urine Glucose (UA) Negative Urine Ketones Negative Urine Blood Negative Urine Nitrite Negative Urine Bilirubin Negative Urine Urobilinogen (Auto) Negative Ur Leukocyte Esterase Negative Urine RBC 2 Urine WBC < 1 Ur Squamous Epith Cells < 1 Urine Bacteria None Urine Opiates Screen Negative Urine Fentanyl Screen Negative Ur Barbiturates Screen Negative U Amphetamin/Meth Scrn Negative U Benzodiazepines Scrn Negative U Cocaine Metab Screen Negative U Marijuana (THC) Screen Negative Ethyl Alcohol < 3.0 Assessment & Plan Assessment and plan (1) Acute CVA (cerebrovascular accident): Status: Acute Assessment and plan: MRI brain showing an acute infarct in the left ganglia. Continue with the dual antiplatelet therapy along with statin Follow-up with echocardiogram. (2) Chronic alcoholism: Status: Acute Assessment and plan: Advised alcohol cessation and advised him to look into resources locally. Continue to monitor for DTs Continue with thiamine and folate
[2024-08-25] VITALS: BP 149/73; PULSE 62; PULSE 64; RESP 12; TEMP 36.4; O2SAT 97
[2024-08-25 04:00] VITALS: BP 147/78; PULSE 51; PULSE 54; RESP 14; TEMP 36.6; O2SAT 988
[2024-08-25] MEDS: HEPARIN SOD INJ 5000 UNIT/ML VIAL SC ×2 (05:43→13:56)
[2024-08-25 05:57] VITALS: BMI 30.9
[2024-08-25 06:48] LABS: Basophils % (Auto) 0 % (0-2.5); Eosinophils # (Auto) 0.4 Thou/mm3 (0.0-0.5); Eosinophils % (Auto) 6 % (0-10); Hematocrit 41.9 % (41.0-53.0); Hemoglobin 14.2 g/dL (13.5-16.0); Immature Granulocytes % (Auto) 0 % (0-0); Immature Granulocytes Auto 0.02 Thou/mm3 (0.00-0.00); Lymphocytes # (Auto) 1.6 Thou/mm3 (1.0-4.8); Lymphocytes % (Auto) 24 % (10-50); Mean Corpuscular HGB Conc 33.9 g/dl (31.0-37.0); Mean Corpuscular Hemoglobin 29.3 pg (25.0-35.0); Mean Corpuscular Volume 87 fL (80-100); Monocytes # (Auto) 0.9 Thou/mm3 (0.0-0.8); Monocytes % (Auto) 14 % (0-12); Neutrophils # (Auto) 3.6 Thou/mm3 (1.8-7.7); Neutrophils % (Auto) 56 % (37-80); Nucleated Red Blood Cell % 0 /100 WBC (0); Platelet Count 204 Thou/mm3 (140-440); RDW Standard Deviation 42.5 fL (35.1-43.9); Red Blood Count 4.84 Miln/mm3 (4.50-5.90); White Blood Count 6.4 Thou/mm3 (3.8-10.6)
[2024-08-25 07:16] LABS: Anion Gap 7 (7-16); BUN/Creatinine Ratio 14 Ratio (12-20); Blood Urea Nitrogen 11 mg/dL (9-23); Calcium 9.2 mg/dL (8.3-10.6); Chloride 108 mMol/L (98-107); Creatinine (Component) 0.8 mg/dL (0.6-1.3); Estimated Creatinine Clearance 79.7 mL/min (>60); Glucose 111 mg/dL (74-106); Osmolality,Calculated 277 (275-295); Potassium 3.5 mMol/L (3.4-5.1); Sodium 139 mMol/L (136-145); eGFR > 60 See Note
[2024-08-25 08:00] VITALS: BP 158/69; PULSE 59; PULSE 67; RESP 15; TEMP 36.1; O2SAT 99
[2024-08-25] MEDS: CLOPIDOGREL BISULFATE 75 MG TABLET PO (08:31)
[2024-08-25] MEDS: ASPIRIN EC 81 MG TABEC PO (08:31)
[2024-08-25] MEDS: FOLIC ACID 1 MG TABLET PO (08:31)
[2024-08-25] MEDS: THIAMINE 100 MG TABLET PO (08:31)
--- NOTE | 2024-08-25 10:56 | PD.ADDPROG ---
Addendum Progress Note Addendum Date of report being addended: 08/25/24 Narrative: I reviewed labs, imaging, EKG, home medications and prior available records. Face to face evaluation was performed by me. I have personally examined the patient and discussed assessment and plan with the IM team. I reviewed the resident note and agree with the plan with exceptions as below. Acute CVA: Brain MRI showed 39 mm acute left basal ganglia infarct, nonhemorrhagic. Patient has no new focal neurodeficit and his symptoms are improving. Continue aspirin, atorvastatin, and Plavix. Ordered PT evaluation. Follow-up echocardiogram. Follow-up neurology recommendations.
[2024-08-25 12:00] VITALS: BP 153/89; PULSE 61; PULSE 62; RESP 14; TEMP 36.2; O2SAT 98
--- NOTE | 2024-08-25 13:10 | PC.PT ---
PT eval only. Patient is I with transfers and ambulation without AD.
--- NOTE | 2024-08-25 14:11 | PD.ADDDSCHGE ---
Addendum Discharge Addendum Date of report being addended: 08/25/24 Narrative: I reviewed labs, imaging, EKG, home medications and prior available records. Face to face evaluation was performed by me. I have personally examined the patient and discussed assessment and plan with the IM team. I reviewed the resident note and agree with the plan with exceptions as below. Acute CVA: Brain MRI showed 39 mm acute left basal ganglia infarct, nonhemorrhagic. Patient has no new focal neurodeficit and his symptoms are improving. Continue aspirin, atorvastatin, and Plavix. Ordered PT evaluation: Recommended no rehab or home health. Follow-up echocardiogram: Showed preserved EF with no pertinent abnormalities. Follow-up neurology recommendations: Okay to discharge on aspirin, atorvastatin, and Plavix. Alcohol abuse: Counseled the patient regarding the importance of drinking within limits. Time spent is 40 minutes. More than 50% of the time was spent on patient education and coordination of care.
--- NOTE | 2024-08-25 14:14 | ESDS_ITS ---
Planned Discharge Date 08/25/24 DS: Providers Provider Date of admission: 08/24/24 02:05 Primary care physician: Physician No Primary/Family Admitting Provider: Charlie Li MD Attending Provider on Admission: Charlie Li MD Consults: 08/24/24 02:13 Consult to Neurology / Tele-Neurology Routine Comment: CVA Consulting Provider: Chris Delaney 08/25/24 08:01 Referral Physical Therapy Routine Comment: Physician Instructions: Attending Provider on DC: Brenden Lee MD Discharging Provider: Brenden Lee MD DS: Diagnosis Problem List Completed Was Problem List Reviewed/Reconciled?: Yes Hospital Course Hospital Course Hospital course: A 73-year-old male with a significant history of alcohol abuse, 12-18 beers per day presented to the hospital with chief complaints of right facial droop, slurred speech and diagnosed to have acute ischemic stroke. Patient was found to have elevated blood pressure at the time of admission 198/84 mmHg.Labs are unremarkable except for mildly elevated AST 45. Lipid panel is within normal limits. HbA1c is 5.9. EKG showed sinus bradycardia. Head CT showed acute nonhemorrhagic infarct in left basal ganglia. MRI brain showed 39 mm acute infarct in left basal ganglia, nonhemorrhagic. Head/neck CTA showed no significant neck arterial stenosis. Echocardiogram done showed normal LV size and function. EF 55 to 60% with stage I diastolic dysfunction. Dr. Delaney was consulted and followed her recommendations. Patient was treated with dual antiplatelet, atorvastatin, CIWA protocol. Referred to physical therapy and recommended safe discharge to home. Patient was discharged to home with the following medications and recommendations. Please follow-up with your PCP within 1 week. If you do not have appointment, please follow-up with the [facility] with Dr. Lee. Call [phone] to make an appointment. Please follow-up with neurologist Dr. Delaney within 1 to 2 weeks Take aspirin 81 mg and clopidogrel 75 mg together for the next 19 days. After that, take aspirin 81 mg alone Take atorvastatin 40 mg every night and amlodipine 5mg p.o. qday Take folic acid 1 mg twice daily and thiamine 100 mg twice daily for the next 12 days. Advised to discontinue alcohol intake Return to your nearest ED if your symptoms return # Acute ischemic stroke # Alcohol use disorder Patient plan of care was discussed with the attending physician, Dr. John Paul Lee, PGY1 Time Spent with Patient Time attestation: Total time spent providing and/or coordinating discharge services: Time spent: Greater than 30 minutes Exam Vital Signs Temp Pulse Resp BP Pulse Ox O2 Del Method 97.1 F 62 14 153/89 H 98 Room Air 08/25/24 12:00 08/25/24 12:08/25/24 12:08/25/24 12:08/25/24 12:08/25/24 12:00 Narrative Exam General: Awake. Moderately built and nourished. HEENT: Normocephalic, atraumatic, mucous membranes moist. Heart: Regular rate and rhythm, no murmurs. Lungs: Clear to auscultation with no wheezing or crackles. Abdomen: Soft, nondistended, nontender, positive bowel sounds. ?No guarding or rebound tenderness. Neurologic: Alert and oriented x3, angle of mouth deviation to left side with flattening of nasolabial fold on the right and right facial droop, and patient able to move all 4 extremities. Extremities: No edema. Skin: No rash or ecchymoses. Discharge Plan Plan Patient Disposition: HOME (Self Care) Patient condition on transfer: Stable Care Plan Goals: Please follow-up with your PCP within 1 week. If you do not have appointment, please follow-up with the [facility] with Dr. Lee. Call [phone] to make an appointment. Please follow-up with neurologist Dr. Delaney within 1 to 2 weeks Take aspirin 81 mg and clopidogrel 75 mg together for the next 19 days. After that, take aspirin 81 mg alone Take atorvastatin 40 mg every night and amlodipine 5mg p.o. qday Take folic acid 1 mg twice daily and thiamine 100 mg twice daily for the next 12 days. Advised to discontinue alcohol intake Return to your nearest ED if your symptoms return Prescriptions/Referrals Prescriptions/Med Rec: New aspirin [Enteric Coated Aspirin] 81 mg tablet,delayed release (DR/EC) 81 mg PO QDAY 30 Days Qty: 30 0RF atorvastatin 40 mg tablet 40 mg PO HS 30 Days Qty: 30 0RF clopidogrel 75 mg Tablet 75 mg PO QDAY 19 Days Qty: 19 0RF folic acid 1 mg Tablet 1 mg PO BID 12 Days Qty: 24 0RF thiamine mononitrate (vit B1) 100 mg Tablet 100 mg PO BID 12 Days Qty: 24 0RF amlodipine 5 mg tablet 5 mg PO QDAY 30 Days Qty: 30 0RF Referrals: No Primary/Family,Physician [Primary Care Provider] - Chris Delaney MD [Physician] - Patient/Caregiver Discharge Instructions Discharge Activity: as per physical therapy and activity as tolerated Education Materials: Stroke: Self-Care, Alcoholism Resources, Addiction: Getting Help, Addiction: Your Treatment Options, Addiction Recovery Counseling, Discharge Instructions for Stroke, Risk Factors for Stroke, Healthy Lifestyle to Prevent ... Print Language: Libyan Stand Alone Forms: Marybeth Award Info., Patient Portal Info Letter Discharge Order Discharge Orders: Discharge (Routine); Ordered 08/25/24 Ordered By: Francisco Hamm Quality Discharge Quality Measures VTE prophylaxis Attestestation MD Attestation I reviewed labs, imaging, EKG, home medications and prior available records. Face to face evaluation was performed by me. I have personally examined the patient and discussed assessment and plan with the IM team. I reviewed the resident note and agree with the plan with exceptions as below. See my addendum in a separate note for the same date.
[2024-08-25 15:59] VITALS: BP 160/70; PULSE 62; RESP 18; TEMP 35.9; O2SAT 97
--- NOTE | 2024-08-25 23:29 | VVPN_ITS ---
Telemedicine visit statement This visit was conducted with the use of phone was obtained on 08/25/24. Documentation for date of: 08/25/24 Subjective Subjective Interval history: Patient is seen in telemetry no new symptoms or recurrence of symptoms. Virtual exam Vital Signs Temp Pulse Resp BP Pulse Ox O2 Del Method 96.6 F L 62 18 160/70 H 97 Room Air 08/25/24 15:59 08/25/24 15:59 08/25/24 15:59 08/25/24 15:59 08/25/24 15:59 08/25/24 15:59 Objective Labs 08/25/24 05:43 08/25/24 05:43 Labs: Laboratory Results - last 24 hr 08/25/24 05:43 WBC 6.4 RBC 4.84 Hgb 14.2 Hct 41.9 MCV 87 MCH 29.3 MCHC 33.9 RDW Std Deviation 42.5 Plt Count 204 Neut % (Auto) 56 Lymph % (Auto) 24 [place] % (Auto) 14 H Eos % (Auto) 6 Baso % (Auto) 0 Neut # (Auto) 3.6 Lymph # (Auto) 1.6 [place] # (Auto) 0.9 H Eos # (Auto) 0.4 Baso # (Auto) 0.0 Immature Gran # (Auto) 0.02 H Absolute Nucleated RBC 0.00 Immature Gran % 0 Nucleated RBC % 0 Sodium 139 Potassium 3.5 Chloride 108 H Carbon Dioxide 24.0 Anion Gap 7 BUN 11 Creatinine 0.8 Estim Creat Clear Calc 79.7 eGFR > 60 BUN/Creatinine Ratio 14 Glucose 111 H Calculated Osmolality 277 Calcium 9.2 Assessment & Plan Assessment 1) Acute CVA (cerebrovascular accident): Status: Acute Assessment and plan: MRI brain showing an acute infarct in the left ganglia. Continue with the dual antiplatelet therapy along with statin Echocardiogram: fairly normal study, patient is stable for discharge and I will see her back in 2 to 3 weeks. (2) Chronic alcoholism: Status: Acute Assessment and plan: Advised alcohol cessation and advised him to look into resources locally. Continue to monitor for DTs Continue with thiamine and folate
== END 2024-08-25 16:25 | disposition home or self-care (01) | DRG 66 ==
LOC: SERX 08-24 02:23 → SERHOLD 08-24 02:25 → S2NX 08-24 13:00
PROVIDERS: Physician Assistant; Admitting Provider Internal Medicine; Emergency Provider Emergency Medicine; Visit Provider Internal Medicine
DX: I63.50 Cerebral infarction due to unspecified occlusion or stenosis of unspecified cerebral artery (principal); R29.810 Facial weakness; F10.10 Alcohol abuse, uncomplicated; Y90.0 Blood alcohol level of less than 20 mg/100 ml; R03.0 Elevated blood-pressure reading, without diagnosis of hypertension; R47.1 Dysarthria and anarthria; R74.01 Elevation of levels of liver transaminase levels; R29.703 NIHSS score 3; R00.1 Bradycardia, unspecified; Z87.891 Personal history of nicotine dependence; Z79.82 Long term (current) use of aspirin; Z79.899 Other long term (current) drug therapy
CPT/HCPCS: 36415; 70450; 70496; 70498; 70551; 71045; 80048; 80053; 80061; 80307; 80320; 81001; 83036; 83615; 83735; 83880; 84484; 85025; 85610; 85730; 92507; 92610; 93005; 93306; 96372; 97162; 99291; A4649; J0360; J1643; J7030; Q9967; A9270; G0480; J1644

== ENCOUNTER → 2024-09-10 | Outpatient (CLI) | payer OTHER, SELFPAY ==
[2024-09-10 09:33] LABS: Alanine Aminotransferase 28 U/L (10-49); Albumin, Serum 4.5 gm/dL (3.4-4.8); Albumin/Globulin Ratio 1.8 (1.2-2.2); Alkaline Phosphatase 58 U/L (46-116); Anion Gap 8 (7-16); Aspartate Amino Transferase 26 U/L (0-34); BUN/Creatinine Ratio 17 Ratio (12-20); Bilirubin,Total 0.5 mg/dL (0.3-1.2); Blood Urea Nitrogen 15 mg/dL (9-23); Calcium 9.3 mg/dL (8.3-10.6); Calcium (Corrected) 9.3 mg/dL (8.5-10.1); Carbon Dioxide 25.6 mMol/L (20.0-31.0); Cardiac Risk Estimate 2.6 RATIO (4.0-6.7); Chloride 108 mMol/L (98-107); Cholesterol 103 mg/dL (132-200); Creatinine (Component) 0.9 mg/dL (0.6-1.3); Globulin 2.5 gm/dL (2.3-3.5); Glucose 111 mg/dL (74-106); HDL Cholesterol 39 mg/dL (40-60); LDL Cholesterol,Calculated 46 mg/dL (0-130); Osmolality,Calculated 284 (275-295); Potassium 4.6 mMol/L (3.4-5.1); Sodium 142 mMol/L (136-145); Triglycerides 92 mg/dL (30-150); eGFR > 60 See Note
[2024-09-10 09:45] LABS: Glucose Estimated Average 123 mg/dL (80-131); Hemoglobin A1C 5.9 % Hgb (4.8-6.0)
== END | disposition home or self-care (01) ==
PROVIDERS: PCP Family Medicine; Referring Provider Family Medicine; Visit Provider Family Medicine
DX: I10 Essential (primary) hypertension (principal); I63.9 Cerebral infarction, unspecified
CPT/HCPCS: 36415; 80053; 80061; 83036

== ENCOUNTER → 2025-02-07 | Outpatient (CLI) | payer OTHER, SELFPAY ==
[2025-02-07 09:52] LABS: Glucose Estimated Average 111 mg/dL (80-131); Hemoglobin A1C 5.5 % Hgb (4.8-6.0)
[2025-02-07 10:00] LABS: Cardiac Risk Estimate 3.8 RATIO (4.0-6.7); Cholesterol 166 mg/dL (132-200); HDL Cholesterol 44 mg/dL (40-60); LDL Cholesterol,Calculated 98 mg/dL (0-130); Thyroid Stimulating Hormone 2.01 uIU/mL (0.55-4.78); Triglycerides 119 mg/dL (30-150)
== END | disposition home or self-care (01) ==
LOC: COPL 08:32
PROVIDERS: PCP Family Medicine; Referring Provider Family Medicine; Visit Provider Family Medicine
DX: I10 Essential (primary) hypertension (principal)
CPT/HCPCS: 36415; 80061; 83036; 84443

== ENCOUNTER → 2025-09-09 | Outpatient (CLI) | payer OTHER, SELFPAY ==
[2025-09-09 09:36] LABS: Basophils # (Auto) 0.0 Thou/mm3 (0.0-0.2); Basophils % (Auto) 0 % (0-2.5); Eosinophils # (Auto) 0.3 Thou/mm3 (0.0-0.5); Eosinophils % (Auto) 3 % (0-10); Hematocrit 42.9 % (41.0-53.0); Hemoglobin 14.4 g/dL (13.5-16.0); Immature Granulocytes Auto 0.03 Thou/mm3 (0.00-0.00); Lymphocytes # (Auto) 2.8 Thou/mm3 (1.0-4.8); Lymphocytes % (Auto) 28 % (10-50); Mean Corpuscular HGB Conc 33.6 g/dl (31.0-37.0); Mean Corpuscular Hemoglobin 28.3 pg (25.0-35.0); Mean Corpuscular Volume 84 fL (80-100); Monocytes # (Auto) 0.8 Thou/mm3 (0.0-0.8); Monocytes % (Auto) 7 % (0-12); Neutrophils # (Auto) 6.2 Thou/mm3 (1.8-7.7); Neutrophils % (Auto) 61 % (37-80); Nucleated Red Blood Cell # 0.00 Thou/mm3 (0.00-0.00); Nucleated Red Blood Cell % 0 /100 WBC (0); Platelet Count 273 Thou/mm3 (140-440); RDW Standard Deviation 42.8 fL (35.1-43.9); Red Blood Count 5.08 Miln/mm3 (4.50-5.90); White Blood Count 10.2 Thou/mm3 (3.8-10.6)
[2025-09-09 09:59] LABS: Alanine Aminotransferase 13 U/L (10-49); Albumin, Serum 4.3 gm/dL (3.4-4.8); Albumin/Globulin Ratio 1.4 (1.2-2.2); Alkaline Phosphatase 66 U/L (46-116); Anion Gap 9 (7-16); Aspartate Amino Transferase 18 U/L (0-34); BUN/Creatinine Ratio 13 Ratio (12-20); Bilirubin,Total 0.5 mg/dL (0.3-1.2); Blood Urea Nitrogen 12 mg/dL (9-23); Calcium 8.7 mg/dL (8.3-10.6); Calcium (Corrected) 8.7 mg/dL (8.5-10.1); Carbon Dioxide 28.6 mMol/L (20.0-31.0); Cardiac Risk Estimate 4.2 RATIO (4.0-6.7); Chloride 106 mMol/L (98-107); Cholesterol 169 mg/dL (132-200); Creatinine (Component) 0.9 mg/dL (0.6-1.3); Globulin 3.1 gm/dL (2.3-3.5); Glucose 110 mg/dL (74-106); HDL Cholesterol 40 mg/dL (40-60); LDL Cholesterol,Calculated 107 mg/dL (0-130); Osmolality,Calculated 287 (275-295); Potassium 4.0 mMol/L (3.4-5.1); Sodium 144 mMol/L (136-145); Thyroid Stimulating Hormone 2.44 uIU/mL (0.55-4.78); Total Protein 7.4 gm/dL (5.7-8.2); Triglycerides 112 mg/dL (30-150); eGFR > 60 See Note
[2025-09-09 10:37] LABS: Collection Type, Urine Clean Catch; RBC,Urine 0 /hpf (0-3); WBC,Urine 0 /hpf (0-5)
[2025-09-09 11:37] LABS: Bilirubin,Urine Negative (Negative); Blood,Urine Negative (Negative); Clarity,Urine Clear (Clear/Hazy); Color,Urine Yellow (Lt Yel-Yel); Glucose, Urine Negative (Negative); Ketones,Urine Negative (Negative); Leukocyte Esterase,Urine Negative (Negative); Nitrite,Urine Negative (Negative); PH,Urine 5.5 (5.0-7.0); Protein,Urine Negative (Neg - Trace); Specific Gravity,Urine 1.026 (1.001-1.035); Squamous Epithelial Cell,Urine < 1 /hpf (0-5); Urobilinogen,Urine Negative mg/dL (0.0-1.0)
== END | disposition home or self-care (01) ==
LOC: COPL 08:23
PROVIDERS: PCP Family Medicine; Referring Provider Family Medicine; Visit Provider Family Medicine
DX: I10 Essential (primary) hypertension (principal)
CPT/HCPCS: 36415; 80053; 80061; 81001; 84443; 85025